=== PATIENT | male | born 1955 | race Caucasian/White ===

== ENCOUNTER 2021-03-02 08:00 | Outpatient (CLI) | payer MEDICARE, OTHER | END 2021-03-02 23:59 | disposition home or self-care (01) | LOC: LAB 08:00 | PROVIDERS: ATTEND Physician Assistant Medical | DX: N30.00 Acute cystitis without hematuria (principal) | CPT/HCPCS: 87086 ==

== ENCOUNTER 2021-08-14 03:37 | Emergency (ER) | payer MEDICARE, OTHER ==
[2021-08-14 03:48] VITALS: BP 147/85
[2021-08-14] MEDS ORDERED: CEPHALEXIN 250 MG Prepack 8 CAP BOTTLE PO STA (04:04)
--- NOTE | 2021-08-14 04:06 | ED Physician Documentation ---
History of Present Illness - Stated complaint Stated Complaint: L HAND SWELLING - Chief complaint Chief Complaint: Ext Problem - History obtained from History obtained from: Patient - History of Present Illness Timing: How many days ago (3) - Additonal information Additional information: Previously well 66-year-old male on no medications has developed swelling to his left hand with some erythema. This swelling has progressed over the past 2 days. He does have more swelling and erythema over the palmar side of the middle finger. He does not have an entrance wound or abrasion. He states that he was moving some branches the day that this started. He denies overworking or overuse of the hand or constriction of the wrist or forearm. He is wearing a wrist band for his watch but states that he is takes this off at night. Today he got up to go let the puppy out and discovered that his hand was even more swollen. His is a nurse and she insisted he come to the emergency department to be evaluated with a concern for cellulitis. Review of Systems Constitutional: denies: Fever, Chills, Myalgias Eyes: denies: Decreased vision Ears: denies: Ear pain Nose: denies: Rhinorrhea / runny nose, Congestion Throat: denies: Sore throat Cardiac: denies: Chest pain / pressure Respiratory: denies: Dyspnea, Cough GI: denies: Abdominal Pain, Nausea, Vomiting, Diarrhea Musculoskeletal: reports: Extremity swelling. denies: Neck pain, Back pain Neurologic: denies: Generalized weakness, Focal weakness PD PAST MEDICAL HISTORY - Past Medical History Past Medical History: No Cardiovascular: None Respiratory: None Neuro: None Endocrine/Autoimmune: None GI: None : None HEENT: None Psych: None Musculoskeletal: None Derm: None - Past Surgical History Past Surgical History: No - Present Medications Home Medications: Ambulatory Orders Medication Instructions Recorded Confirmed cephALEXin [Keflex] 500 mg PO Q6H #28 cap 08/14/21 - Allergies Allergies/Adverse Reactions: Allergies Allergy/AdvReac Type Severity Reaction Status Date / Time No Known Drug Allergies Allergy Verified 08/14/21 03:48 - Social History Does the pt smoke?: Yes Smoking Status: Current every day smoker Does the pt drink ETOH?: Yes Does the pt have substance abuse?: No - Immunizations Immunizations: TDAP >10years/unknown - POLST Patient has POLST: No PD ED PE NORMAL - Vitals Vital signs reviewed: Yes (hypertensive mild ) - General General: Alert and oriented X 3, No acute distress, Well developed/nourished - HEENT HEENT: Atraumatic, PERRL, EOMI - Respiratory Respiratory: No respiratory distress - Derm Derm: Warm and dry - Extremities Extremities: Other (Examination of the left hand reveals general swelling to all of the digits the palm of the hand the dorsum of the hand the thumb extending to the wrist. There is erythema the the centralized erythema it is over the palmar surface of the middle finger. There is some tightness to that area as a symp) - Neuro Neuro: Alert and oriented X 3, claims adjuster 2-12 intact, No motor deficit, No sensory deficit, Normal speech Eye Opening: Spontaneous Motor: Obeys Commands Verbal: Oriented GCS Score: 15 - Psych Psych: Normal mood, Normal affect Results - Vitals Vitals: Vital Signs - 24 hr 08/14/21 03:46 Temperature 35.8 C L Heart Rate 51 L Respiratory 16 Rate Blood Pressure 147/85 H O2 Saturation 98 Oxygen O2 Source Room air PD MEDICAL DECISION MAKING - ED course Complexity details: considered differential, d/w patient ED course: 66-year-old male with swelling and erythema to his left hand does not have an obvious entrance wound but appears to have cellulitis. He is started on Keflex and we will refer him to a primary care doctor for follow-up. Departure - Departure Disposition: 01 Home, Self Care Clinical Impression: Cellulitis Qualifiers: Site of cellulitis: extremity Site of cellulitis of extremity: upper extremity Laterality: left Qualified Code(s): L03.114 - Cellulitis of left upper limb Condition: Stable Instructions: ED Infec Skin Cellulitis Follow-Up: [facility] [Provider Group] Prescriptions: cephALEXin [Keflex] 500 mg PO Q6H #28 cap Comments: Jorge, today it looks like you have an infection in the fat layer of the skin. This area does not have septations in the fat and the infection can spread easily. It is also an infection that responds well to antibiotic. I have prescribed some cephalexin to be taken 4 times per day and it has been E scribed to [facility] in [place]. If you develop worsening swelling and redness despite beginning the antibiotic this is a reason to return to the emergency department for potential admission to the hospital.
== END 2021-08-14 04:24 | disposition home or self-care (01) ==
LOC: ED 03:37
DX: L03.114 Cellulitis of left upper limb (principal); F17.200 Nicotine dependence, unspecified, uncomplicated
CPT/HCPCS: 99282